=== PATIENT | female | born 1995 | race Caucasian/White ===

== ENCOUNTER 2018-01-22 14:25 | Emergency (ER) | payer BC ==
--- NOTE | 2018-01-22 15:48 | EDPHY ---
H & P Stated Complaint: broke tibia saturday, increasing pain and drainage Source: Patient Exam Limitations: No limitations - Personal History Current Tetanus/Diphtheria Vaccine: Yes Current Tetanus Diphtheria and Acellular Pertussis (TDAP): Yes Tetanus Vaccine Date: < 10 years - Medical/Surgical History Hx Asthma: No Hx Chronic Respiratory Disease: No Hx Diabetes: No Hx Cardiac Disease: No Hx Renal Disease: No Hx Cirrhosis: No Hx Alcoholism: No Hx HIV/AIDS: No Hx Splenectomy or Spleen Trauma: No Other PMH: anxiety/depression - Social History Smoking Status: Never smoked Time Seen by Provider: 01/22/18 15:47 HPI/ROS: HPI: This is a 22-year-old female who presents with Chief Complaint: broke tibia Saturday, increasing pain and drainage Location: Right knee Quality: Swelling Duration: 2-3 days Signs and Symptoms: No bleeding, no radiation, no numbness, no weakness, no tingling, no incontinence, + decreased range of motion, + swelling, + pain, no fever, no skin color changes Timing: Worsening Severity: 07/07 Context: Patient reports that she is originally from [place], here visiting [facility] on vacation with plans to drive back on Saturday presents with right knee swelling that is worsened over the last 2-3 days. She reports that her pain is not controlled by oxycodone 5 mg tablets. On Saturday she sustained a knee injury while skiing. She reports that she was seen at the [facility] emergency room where she was diagnosed with a tibial fracture. She further reports that she has had an x-ray, CT, MRI of her knee performed. An orthopedic consult was obtained in the emergency room in her right knee effusion was aspirated. Denies LOC/head injury/neck pain/dizziness/nausea/ vomiting/amnesia. Patient is currently in a hinged knee immobilizer with crutches. Modifying Factors: Oxycodone no relief Comment: ROS: see HPI Constitutional: No fever, no chills, no weight loss Eyes: No blurred vision Respiratory: No shortness of breath, no cough Cardiovascular: No chest pain Gastrointestinal: No nausea, no vomiting no diarrhea Genitourinary: No dysuria Extremities: No myalgias Neurologic: No weakness, no numbness Skin: No rashes Hematologic: No bruising, no bleeding MEDICAL/SURGICAL/SOCIAL HISTORY: Medical history: Anxiety, depression Surgical history: Denies Social history: Originally from [place]. CONSTITUTIONAL: Very pleasant well-appearing young adult white female, awake and alert, no obvious distress HEENT: Atraumatic and normocephalic. NECK: supple, no midline tenderness, flexion 45 degrees, extension 45 degrees, right and left lateral flexion 45 degrees. No meningismus. Cardiovascular: Normal S1/S2, tachycardia, regular rhythm, without murmur rub or gallop. PULMONARY/CHEST: Symmetrical and nontender. no crepitus. Clear to auscultation bilaterally. Good air movement. No accessory muscle usage. ABDOMEN: Soft, nondistended, nontender, no ecchymosis. PELVIC: no pain with rocking; bilateral hips flexion 125 degrees, extension 30 degrees, with no pain internal rotation and no pain external rotation. BACK: No midline tenderness, no paraspinous spasm, deep tendon reflexes 2/2, no pain with straight leg raise, No foot drop. Achilles reflexes are equal bilaterally. Able to walk on heels and toes without difficulty. EXTREMITIES: 2/2 pulses, strength 5/5, right KNEE: Moderate effusion, moderate medial and lateral joint line tenderness, full extension to 180, flexion to 80. good light touch sensation. no deformities, no clubbing, no cyanosis or edema. NEUROLOGICAL: no focal neuro deficits. GCS 15. Light touch sensation intact. SKIN: Warm and dry, no erythema. no rash. Good capillary refill. (Loretta Souza) Constitutional: Initial Vital Signs Temperature (C) 37 C 01/22/18 14:29 Heart Rate 115 H 01/22/18 14:29 Respiratory Rate 20 01/22/18 14:29 Blood Pressure 122/53 H 01/22/18 14:29 O2 Sat (%) 97 01/22/18 14:29 O2 Delivery Mode Room Air O2 (L/minute) 2 Allergies/Adverse Reactions: No Known Allergies Allergy (Unverified 01/22/18 14:29) Home Medications: Medication Instructions Recorded HYDROmorphone HCL [Dilaudid 2 mg 2 mg PO Q6 PRN #12 tab 01/22/18 (*)] oxyCODONE CR 01/22/18 Medical Decision Making - Diagnostics Imaging Results: Imaging Impressions Extremity CT 01/22/18 15:54 Impression: 1. Acute tibial plateau fracture involving the anterior mesial medial articular surface and the posterior mesial lateral articular surface. 2. A fracture fragment anterior to the tibial eminence is displaced 2-3 mm. Findings were discussed by telephone with Dr. Souza at 4:46 PM on 01/22/2018 ED Course/Re-evaluation: CT knee obtain, given IV Dilaudid 1 mg No signs of neurovascular compromise/tenting of skin/compartment syndrome/ extremities and joints examined above and below area of concern and are neurovascularly intact/septic arthritis. 1645: Called by Radiology who advised that there is a tibial plateau fracture on the right with minimal medial and lateral involvement and diastasis. Reassessed patient who reports that pain is now 5/10. Requesting more pain medication. IV Dilaudid 0.5 mg given Long discussion regarding joint aspiration at this point as it will continue to reaccumulate until patient has surgery in [place]. Patient is scheduled to return on Saturday. CT images provided to patient to take home on disc. This patient was seen under the supervision of my secondary supervising physician. I evaluated care for this patient independently. Discussed this patient with Dr. Warren who did not see the patient. (Loretta Souza) The patient was evaluated and managed by the physician general assistant. I have reviewed this chart and I agree with the findings and plan of care as documented , as indicated by my signature. I am the secondary supervising physician. ( Janea Warren) Differential Diagnosis: Knee injury while including but not limited to fracture, ACL injury, contusion, muscular strain, and meniscus injury. (Loretta Souza) - Data Points Medications Given: Discontinued Medications Hydromorphone HCl (Dilaudid) 1 mg IVP EDNOW ONE Stop: 01/22/18 15:56 Last Admin: 01/22/18 16:38 Dose: 1 mg Hydromorphone HCl (Dilaudid) 0.5 mg IVP EDNOW ONE Stop: 01/22/18 16:59 Last Admin: 01/22/18 17:22 Dose: 0.5 mg Departure - Departure Disposition: Home, Routine, Self-Care Clinical Impression: Effusion of right knee joint, Uncontrolled pain Closed fracture of right tibial plateau Qualifiers: Encounter type: initial encounter Qualified Code(s): S82.141A - Displaced bicondylar fracture of right tibia, initial encounter for closed fracture Condition: Good Instructions: Knee Immobilizer (ED), ORIF (DC) Additional Instructions: Wear the knee immobilizer continuously except shower. Take Tylenol 650 mg every 4 hours and/or Ibuprofen 600 mg every 8 hours with food as needed for pain. Use Dilaudid every 6 hours as needed for severe/break through pain. Do not use Tylenol and Percocet concomitantly. Apply ice for 30 minutes at a time; 3-4 times per day for the next 1-2 days. Please follow-up with her orthopedist in [place] for further care. Return to the ER immediately if you experience new or worsening pain, discoloration, numbness, tingling, or any other symptoms that concern you. Referrals: RADHA KAY [Other] - As per Instructions Luc Shea MD [Medical Doctor] - As per Instructions Prescriptions: HYDROmorphone HCL [Dilaudid 2 mg (*)] 2 mg PO Q6 PRN #12 tab PRN Reason: Pain, Severe
[2018-01-22] MEDS ORDERED: HYDROmorphONE/DILAUDID 2 MG/ML INJ IVP ONE ×2 (15:55→16:58)
[2018-01-22 18:07] VITALS: BP 115/70
== END 2018-01-22 18:08 | disposition home or self-care (01) ==
DX: S82.141A Displaced bicondylar fracture of right tibia, initial encounter for closed fracture (principal); V00.328A Other snow-ski accident, initial encounter; Y99.8 Other external cause status; Y93.23 Activity, snow (alpine) (downhill) skiing, snowboarding, sledding, tobogganing and snow tubing
CPT/HCPCS: 96374; J1170